=== PATIENT | female | born 1995 | race Caucasian/White ===

== ENCOUNTER 2019-04-11 23:22 | Inpatient (IN) ==
[2019-04-11] MEDS ORDERED: SODIUM CHLORIDE 0.9% INJ SCH (23:45)
[2019-04-11] MEDS ORDERED: ZOFRAN IV PRN (23:57)
[2019-04-11] MEDS ORDERED: STADOL IV PRN (23:57)
[2019-04-11] MEDS ORDERED: PEPCID PO PRN ×2 (23:57)
[2019-04-11] MEDS ORDERED: REGLAN PO PRN (23:57)
[2019-04-11] MEDS ORDERED: KEFZOL 1 GM/D5W 1 GM/50 ML IVPB IV PRN (23:57)
[2019-04-11] MEDS ORDERED: TYLENOL PO PRN (23:57)
[2019-04-11] MEDS ORDERED: PEPCID IV PRN (23:57)
[2019-04-12] MEDS: LR 1,000 ML IV SCH ×3 (00:20→02:04)
[2019-04-12 01:49] LABS: BASO# 0.06 X1000 (0.0-0.2); BASO% 0.5 % (0.0-0.8); EOS# 0.15 X1000 (0.0-0.7); EOS% 1.2 % (0.0-10.0); HEMATOCRIT 34.6 % (37.0-47.0); IMM GRAN# 0.12 X1000 (0.0-0.04); IMM GRAN% 1.1 % (0.0-0.5); LYMPH# 2.68 X1000 (1.2-3.4); LYMPH% 23.5 % (20.5-51.1); MCH 30.1 PG (27-31); MCHC 35.3 g/dL (33-37); MCV 85.3 FL (81-99); MONO# 1.11 X1000 (0.11-0.59); MONO% 9.4 % (1.7-9.3); MPV 11.6 FL (7.4-10.4); PLT 182 X1000 (130-400); RBC 4.08 XMIL (4.2-5.4); WBC 11.86 X1000 (4.8-10.8)
[2019-04-12] MEDS: PITOCIN 30 UNITS/NS 30 UNIT/500 ML IV.SOLN IV SCH ×2 (02:04→03:16)
[2019-04-12] MEDS ORDERED: MORPHINE ONE (02:06)
[2019-04-12] MEDS ORDERED: MINERAL OIL PO PRN (02:23)
[2019-04-12] MEDS ORDERED: BENADRYL PO PRN (02:23)
[2019-04-12] MEDS ORDERED: XYLOCAINE-MPF 1% INJ PRN (02:23)
[2019-04-12] MEDS ORDERED: NORCO-5 PO PRN (02:23)
[2019-04-12] MEDS ORDERED: BENADRYL IV PRN (02:23)
[2019-04-12] MEDS ORDERED: PITOCIN IM PRN (02:23)
[2019-04-12] MEDS ORDERED: PERI MEDS (DERMOPLAST/NUPERCAINAL/TUCKS) MISC PRN (02:23)
[2019-04-12] MEDS ORDERED: CYTOTEC PO PRN (02:23)
[2019-04-12] MEDS ORDERED: HYDROXYZINE IM PRN (02:23)
[2019-04-12] MEDS ORDERED: AMBIEN PO PRN (02:23)
[2019-04-12] MEDS ORDERED: BOOSTRIX VACCINE IM ONE (02:23)
[2019-04-12] MEDS ORDERED: M-M-R II VACCINE SUBQ ONE (02:23)
[2019-04-12] MEDS ORDERED: ATARAX PO PRN (02:23)
[2019-04-12] MEDS ORDERED: PITOCIN 20 UNITS/NS 20 UNITS/1,000 ML IV.SOLN IV SCH (02:30)
[2019-04-12] MEDS ORDERED: PITOCIN 30 UNITS/NS 30 UNIT/500 ML IV.SOLN IV SCH (02:30)
--- NOTE | 2019-04-12 02:47 | HISTORY AND PHYSICAL ---
HISTORY OF PRESENT ILLNESS: Patient is a 23-year-old white female, , at 39 weeks gestation who presents with complaints of uterine contractions. The patient's care is unremarkable. Group B strep culture was negative. PAST MEDICAL HISTORY: Unremarkable. PAST SURGICAL HISTORY: Tonsillectomy. PAST OB HISTORY: G3, P2, spontaneous vaginal delivery x2. [employer] HISTORY: Menarche at age 13. REVIEW OF SYSTEMS: All systems reviewed and noncontributory. FAMILY HISTORY: Significant for high blood pressure. SOCIAL HISTORY: Tobacco use none. Alcohol use none. MEDICATIONS: vitamins. ALLERGIES: No known drug allergies. PHYSICAL EXAMINATION: VITAL SIGNS: Height 5 feet 7 inches, weight 185 pounds. Blood pressure 139/18, pulse of 56, respirations 18. heart rate in the 130s with good [id number] variability. HEENT: Pupils equal, round, reactive to light and accommodation. Extraocular movements intact. Oropharynx clear. NECK: Supple. No thyromegaly. LUNGS: Clear to auscultation. HEART: Regular rate and rhythm. ABDOMEN: Gravid, nontender. Patient with occasional uterine contractions that are painful. CERVICAL: Initially when she presented she was 4 cm dilated, and then after watching for a short period time, a recheck showed that she was 7 cm dilated. EXTREMITIES: DTRs 3+ bilaterally. Mild lower extremity edema. NEUROLOGIC: Cranial nerves 2-12 grossly intact. Motor 5/5. ASSESSMENT/PLAN: A 23-year-old white female, , at 39 weeks gestation in active labor. Group B strep culture was negative. The patient will be admitted and plan on spontaneous vaginal delivery. Patient at present is declining epidural. cc: Roe Neff III, MD
--- NOTE | 2019-04-12 02:49 | OPERATIVE NOTE ---
PROCEDURE DATE: 04/12/2019 DELIVERY NOTE: Patient progressed to complete and pushing, then had spontaneous vaginal delivery of a female infant, 8 pounds 1 ounce, with 's of 9 and 9 at 0201 hours on 04/12/2019 over an intact perineum. Placenta was delivered intact. Three-vessel cord. Cord blood sample was obtained at this time. ESTIMATED BLOOD LOSS: 150 mL. COUNTS: All counts were correct. cc: Roe Neff III, MD
[2019-04-12] MEDS: MOTRIN PO PRN ×3 (05:47→21:53)
[2019-04-12 07:49] LABS: UR AMPHETAMINES QUAL NONE DETECTED (NONE DETECT); UR BARBITUATES QUAL NONE DETECTED (NONE DETECT); UR BENZODIAZEPIN QUAL NONE DETECTED (NONE DETECT); UR CANNABINOIDS QUAL NONE DETECTED (NONE DETECT); UR COCAINE QUAL NONE DETECTED (NONE DETECT); UR METHADONE QUAL NONE DETECTED (NONE DETECT); UR METHAMPHETAMINE QUAL NONE DETECTED (NONE DETECT); UR OPIATES QUAL NONE DETECTED (NONE DETECT); UR OXYCODONE QUAL NONE DETECTED (NONE DETECT); UR PCP QUAL NONE DETECTED (NONE DETECT); UR PROPOXYPHENE QUAL NONE DETECTED (NONE DETECT); UR TCA QUAL NONE DETECTED (NONE DETECT)
[2019-04-12 07:49] LABS: URINE SOURCE VOIDED
[2019-04-12 07:55] LABS: BILIRUBIN URINE NEGATIVE (NEGATIVE); BLOOD URINE NEGATIVE (NEGATIVE); CLARITY CLEAR (CLEAR); COLOR YELLOW; GLUCOSE URINE NEGATIVE (NEGATIVE); KETONE URINE TRACE mg/dL (NEGATIVE); PH URINE 6.5; PROTEIN URINE NEGATIVE (NEGATIVE); SP GRAVITY URINE 1.015; UROBILINOGEN URINE NORMAL
[2019-04-12 07:56] LABS: LEUKOCYTES URINE 1+ (NEGATIVE); NITRITE URINE NEGATIVE (NEGATIVE)
[2019-04-12] MEDS: NORCO-10 PO PRN ×3 (11:54→21:53)
[2019-04-12] MEDS ORDERED: PERICOLACE PO SCH (21:00)
[2019-04-13 07:33] LABS: HEMOGLOBIN 12.1 g/dL (12.0-16.0); RBC 4.13 XMIL (4.2-5.4); WBC 9.15 X1000 (4.8-10.8)
[2019-04-13 07:34] LABS: BASO# 0.04 X1000 (0.0-0.2); BASO% 0.4 % (0.0-0.8); EOS# 0.15 X1000 (0.0-0.7); EOS% 1.6 % (0.0-10.0); HEMATOCRIT 36.2 % (37.0-47.0); IMM GRAN# 0.09 X1000 (0.0-0.04); LYMPH# 2.19 X1000 (1.2-3.4); LYMPH% 23.9 % (20.5-51.1); MCH 29.3 PG (27-31); MCHC 33.4 g/dL (33-37); MCV 87.7 FL (81-99); MONO# 0.85 X1000 (0.11-0.59); MONO% 9.3 % (1.7-9.3); MPV 11.3 FL (7.4-10.4); NEUT# 5.83 X1000 (1.4-6.5); NEUT% 63.8 % (42.2-75.2); PLT 158 X1000 (130-400); RDW 13.4 % (11.5-14.5)
[2019-04-13] MEDS: MOTRIN PO PRN (07:55)
[2019-04-13] MEDS: NORCO-10 PO PRN (07:56)
[2019-04-13 08:35] VITALS: BP 128/76
--- NOTE | 2019-04-13 11:26 | OB/GYN PROGRESS NOTE ---
Progress Note OB - . OB Progress Note: Vital Signs - 24 hr 04/12/19 11:43 04/12/19 15:29 04/12/19 20:13 Temperature 97.1 F L 97.4 F L 96.6 F L Pulse Rate 58 L 67 60 Respiratory Rate 18 18 18 Blood Pressure 112/55 103/54 118/72 O2 Sat by Pulse Oximetry 97 97 99 04/12/19 23:01 04/13/19 07:50 Temperature 96.6 F L 96.8 F L Pulse Rate 59 L 81 Respiratory Rate 18 16 Blood Pressure 112/67 128/76 O2 Sat by Pulse Oximetry 100 98 Laboratory Results - last 24 hr 04/13/19 06:06 WBC 9.15 RBC 4.13 L Hgb 12.1 Hct 36.2 L MCV 87.7 MCH 29.3 MCHC 33.4 RDW Std Deviation 13.4 Plt Count 158 MPV 11.3 H Immature Gran % (Auto) 1.0 H Neut % (Auto) 63.8 Lymph % (Auto) 23.9 [place] % (Auto) 9.3 Eos % (Auto) 1.6 Baso % (Auto) 0.4 Immature Gran # (Auto) 0.09 H Neut # (Auto) 5.83 Lymph # (Auto) 2.19 [place] # (Auto) 0.85 H Eos # (Auto) 0.15 Baso # (Auto) 0.04 PPD 1 without difficulty. Pt is without complaints. Her baby is in NICU at [place]. Pt would like to be discharged today so she can travel to [place] to see her baby. Pt plans to breast feed. Fundus: firm, nontender No calf tenderness. A/P: Pt is stable for discharge home. She will follow-up with Dr Neff in 6 weeks. Rx Motrin 600mg.
[2019-04-13] MEDS ORDERED: NORCO-10 PO ONE (14:01)
[2019-04-14] MEDS ORDERED: PRECARE PO SCH (09:00)
== END 2019-04-13 14:15 | disposition home or self-care (01) | DRG 807 ==
LOC: P.LD 23:22 → P.OPLD 23:22 → P.LD 23:51
PROVIDERS: ADMIT Obstetrics & Gynecology; ATTEND Obstetrics & Gynecology
CPT/HCPCS: 59025; 80104; 80301; 80305; 81003; 85025; 86592; 90707; A9270; G0431; G0434; G0477; J0595; J2270; J2590; J7120